=== PATIENT | male | born 1970 | race Hispanic/Latino ===

== ENCOUNTER 2018-07-26 08:58 | Emergency (ER) | payer BC ==
[2018-07-26 09:11] VITALS: BMI 23.7
[2018-07-26] MEDS ORDERED: Sodium Chloride 0.9% 1,000 ML IV STA ×2 (09:24→13:47)
[2018-07-26] MEDS ORDERED: Morphine 4 MG/ML VIAL IV STA ×2 (10:05→13:52)
[2018-07-26 10:47] LABS: BASO % 0.2 % (0.0-2.0); EOS % 0.2 % (0.0-4.0); HEMOGLOBIN 14.2 g/dL (12.0-18.0); LYMPH # 0.5 K/uL (1.0-4.3); LYMPH % 6.3 % (20.0-40.0); MEAN CELL VOLUME 92.7 fl (80.0-94.0); MEAN CORPUSCULAR HEMOGLOBIN 30.7 pg (27.0-31.0); MEAN CORPUSCULAR HGB CONC 33.1 g/dL (33.0-37.0); MONO # 0.4 K/uL (0.0-0.8); MONO % 4.3 % (0.0-10.0); NEUT # 7.6 K/uL (1.8-7.0); PLATELET COUNT 183 K/uL (130-400); RBC 4.63 Mil/uL (4.40-5.90); RED CELL DISTRIBUTION WIDTH 12.9 % (11.5-14.5); WHITE BLOOD COUNT 8.5 K/uL (4.8-10.8)
[2018-07-26 10:55] LABS: ALB/GLOB RATIO 1.5 (1.0-2.1); ALBUMIN 4.1 g/dL (3.5-5.0); ALT/SGPT 49 U/L (21-72); AST/SGOT 33 U/L (17-59); BLOOD UREA NITROGEN 14 mg/dl (9-20); CALCIUM 8.6 mg/dL (8.4-10.2); GFR NON-AFRICAN AMERICAN > 60
[2018-07-26 12:09] LABS: BANDS 4 % (0-2); LYMPHOCYTE 6 % (20-50); MONOCYTE 2 % (0-10); NEUTROPHIL 88 % (42-75); PLATELET ESTIMATE NORMAL (NORMAL); TOTAL CELLS COUNTED 100
[2018-07-26 12:17] VITALS: RESP 19; O2SAT 98
--- NOTE | 2018-07-26 13:37 | CT ---
Date of service: 07/26/2018 PROCEDURE: CT Abdomen and Pelvis without intravenous contrast HISTORY: L flank pain COMPARISON: None. TECHNIQUE: Without contrast.. Contrast dose: 0 Radiation dose: Total exam DLP = 634.2 mGy-cm. This CT exam was performed using one or more of the following dose reduction techniques: Automated exposure control, adjustment of the mA and/or kV according to patient size, and/or use of iterative reconstruction technique. FINDINGS: LOWER THORAX: Unremarkable. LIVER: Unremarkable. No gross lesion or ductal dilatation. GALLBLADDER AND BILE DUCTS: Unremarkable. PANCREAS: Unremarkable. No gross lesion or ductal dilatation. SPLEEN: Unremarkable. ADRENALS: Unremarkable. No mass. KIDNEYS AND URETERS: Mild left hydroureteronephrosis. Obstructing 3 mm calculus at left ureterovesical junction. Trace left perinephric fluid. No right hydronephrosis. No renal mass or calculus. VASCULATURE: Unremarkable. No aortic aneurysm. No aortic atherosclerotic calcification or mural plaque present. BOWEL: Unremarkable. No obstruction. No gross mural thickening. APPENDIX: Unremarkable. Normal appendix. PERITONEUM: Unremarkable. No free fluid. No free air. LYMPH NODES: Unremarkable. No enlarged lymph nodes. BLADDER: Unremarkable. REPRODUCTIVE: Normal prostate BONES: No acute fracture. OTHER FINDINGS: None. IMPRESSION: Obstructing 3 mm calculus at the left ureterovesical junction. Mild left hydroureteronephrosis. Trace left perinephric fluid. No other significant abnormality.
[2018-07-26] MEDS ORDERED: Morphine 4 MG/ML VIAL ONE (13:53)
--- NOTE | 2018-07-26 14:02 | ED PDOC ---
HPI: Abdomen Time Seen by Provider: 07/26/18 09:18 Chief Complaint (Nursing): Abdominal Pain Chief Complaint (Provider): left flank pain and sensation to urinate History Per: Patient History/Exam Limitations: no limitations Onset/Duration Of Symptoms: Hrs (overnight) Current Symptoms Are (Timing): Still Present Associated Symptoms: denies: Fever, Chills, Chest Pain, Urinary Symptoms Additional Complaint(s): Christiano Francis is a 48 year old male, with no significant past medical history, who presents to the emergency department after he woke up overnight with left flank pain and sensation to urinate. Patient states pain is sharp and severe, it somewhat radiates to anterior abdomen. Patient also reports nausea without diarrhea or fever. He denies any prior history of similar pain or renal colic. No further medical complaints. PMD: None provided. Past Medical History Reviewed: Historical Data, Nursing Documentation, Vital Signs Vital Signs: Last Vital Signs Temp 98.0 F 07/26/18 09:30 Pulse 88 07/26/18 12:17 Resp 19 07/26/18 12:17 BP 136/81 07/26/18 12:17 Pulse Ox 98 07/26/18 12:17 - Medical History PMH: No Chronic Diseases - Surgical History Other surgeries: mandibular - Family History Family History: States: Unknown Family Hx - Social History Current smoker - smoking cessation education provided: No Alcohol: None Drugs: Denies - Home Medications Home Medications: Ambulatory Orders Medication Instructions Recorded Cephalexin [cephalexin] 500 mg PO BID #6 cap 07/26/18 Ibuprofen [Motrin Tab] 600 mg PO Q6 PRN #15 tab 07/26/18 Tamsulosin [Flomax] 0.4 mg PO DAILY #2 cap 07/26/18 oxyCODONE/Acetaminophen [Percocet 1 ea PO Q4 PRN #6 tab 07/26/18 5/325 mg Tab] - Allergies Allergies/Adverse Reactions: Allergies Allergy/AdvReac Type Severity Reaction Status Date / Time No Known Allergies Allergy Verified 07/26/18 09:23 Review of Systems ROS Statement: Except As Marked, All Systems Reviewed And Found Negative Constitutional: Negative for: Fever Cardiovascular: Negative for: Chest Pain Genitourinary Male: Positive for: Other (urinary symptoms) Musculoskeletal: Positive for: Other (flank pain). Negative for: Arm Pain, Leg Pain Neurological: Negative for: Headache Physical Exam - Reviewed Nursing Documentation Reviewed: Yes Vital Signs Reviewed: Yes - Physical Exam Appears: Positive for: In Acute Distress (in painful distress) Head Exam: Positive for: ATRAUMATIC, NORMAL INSPECTION, NORMOCEPHALIC Skin: Positive for: Normal Color, Warm, Dry Eye Exam: Positive for: Normal appearance, EOMI, PERRL Neck: Positive for: Normal, Painless ROM Cardiovascular/Chest: Positive for: Regular Rate, Rhythm. Negative for: Murmur Respiratory: Positive for: Normal Breath Sounds. Negative for: Respiratory Distress Gastrointestinal/Abdominal: Positive for: Tenderness (left abdominal ) Back: Positive for: L CVA Tenderness Extremity: Positive for: Normal ROM (upper and lower extremities). Negative for: Deformity, Swelling Neurologic/Psych: Positive for: Alert, Oriented. Negative for: Motor/Sensory Deficits - Laboratory Results Result Diagrams: 07/26/18 10:35 07/26/18 10:35 - ECG O2 Sat by Pulse Oximetry: 98 (RA) Pulse Ox Interpretation: Normal Medical Decision Making Medical Decision Making: Time: 09:18 Initial Impression: Check blood work and CT scan to r/o renal colic Initial Plan: --Abd & Pelvis w/o PO or IV Contrast [CT] --CMP --Urine dipstick --CBC w/ differential --Cipro 500 mg PO --Flomax 0.4 mg PO --Morphine 2 mg IV --Sodium Chloride 1,000 ml IV 1,000 mls --Toradol 15 mg IV --Reevaluation 13:33 Abdomen/Pelvis CT FINDINGS: LOWER THORAX: Unremarkable. LIVER: Unremarkable. No gross lesion or ductal dilatation. GALLBLADDER AND BILE DUCTS: Unremarkable. PANCREAS: Unremarkable. No gross lesion or ductal dilatation. SPLEEN: Unremarkable. ADRENALS: Unremarkable. No mass. KIDNEYS AND URETERS: Mild left hydroureteronephrosis. Obstructing 3 mm calculus at left ureterovesical junction. Trace left perinephric fluid. No right hydronephrosis. No renal mass or calculus. VASCULATURE: Unremarkable. No aortic aneurysm. No aortic atherosclerotic calcification or mural plaque present. BOWEL: Unremarkable. No obstruction. No gross mural thickening. APPENDIX: Unremarkable. Normal appendix. PERITONEUM: Unremarkable. No free fluid. No free air. LYMPH NODES: Unremarkable. No enlarged lymph nodes. BLADDER: Unremarkable. REPRODUCTIVE: Normal prostate BONES: No acute fracture. OTHER FINDINGS: None. IMPRESSION: Obstructing 3 mm calculus at the left ureterovesical junction. Mild left hydroureteronephrosis. Trace left perinephric fluid. No other significant abnormality. -CT scan revealed 3mm stone. Patient requires additional dose of pain medicine. Will initiate Flomax and Cipro, and will reevaluate. 17:00 --Upon provider re-evaluation, patient is medically stable, ambulatory, and reports improvement in symptoms after lidocaine for renal colic. Patient will be discharged home with resources for pain management and given referral for urologist. Patient is educated about fluid intake and opiates then covered with Rx for Keflex x3 days. There is agreement to discharge plan. Return if symptoms persist or worsen. Clinical Impression: Ureterolithiasis Scribe Attestation: Documented by Dano Crooks, acting as a scribe for Rasta Hernandes MD. Provider Scribe Attestation: All medical record entries made by the Scribe were at my direction and personally dictated by me. I have reviewed the chart and agree that the record accurately reflects my personal performance of the history, physical exam, medical decision making, and the department course for this patient. I have also personally directed, reviewed, and agree with the discharge instructions and disposition. Disposition - Clinical Impression Clinical Impression: Ureterolithiasis - Patient ED Disposition Is Patient to be Admitted: No Counseled Patient/Family Regarding: Studies Performed, Diagnosis, Need For Followup, Rx Given - Disposition Referrals: Magaly Larry MD [Medical Doctor] - Disposition: Routine/Home Disposition Time: 17:00 Condition: IMPROVED Additional Instructions: Drink plenty of fluids. Take medications as directed. Return to ER for any worsening symptoms, pain or fever. See urology in 1-2 days if symptoms persist. Prescriptions: Cephalexin [cephalexin] 500 mg PO BID #6 cap Ibuprofen [Motrin Tab] 600 mg PO Q6 PRN #15 tab PRN Reason: Pain, Moderate (4-7) oxyCODONE/Acetaminophen [Percocet 5/325 mg Tab] 1 ea PO Q4 PRN #6 tab PRN Reason: Pain, Severe (8-10) Tamsulosin [Flomax] 0.4 mg PO DAILY #2 cap Instructions: Renal Colic (DC) Forms: [employer] ([place]rainian)
[2018-07-26] MEDS ORDERED: Lidocaine 122 MG in Sodium Chloride 0.9% 100 ML IV STA (15:21)
[2018-07-26 18:18] VITALS: BP 127/76; PULSE 78; TEMP 97.6
== END 2018-07-26 18:18 | disposition home or self-care (01) ==
LOC: H.ER 08:58
DX: N13.2 Hydronephrosis with renal and ureteral calculous obstruction (principal)
CPT/HCPCS: 74176; 80053; 85025; 96374; 96375; 96376; 99285; J1885; J2001; J2270; J2405; J7030